=== PATIENT | male | born 1950 | race Two or more races ===

== ENCOUNTER 2017-07-06 20:38 | Emergency (ER) | payer MEDICARE ==
[~2017-07-06] VITALS: Ht 167.6 cm; Wt 81.2 kg
--- NOTE | 2017-07-06 21:00 | NUR ---
PT CAME IN WITH C/O "LT TEMPORAL SIDE NUMBNESS X10 DAYS; LOST MY VISION YESTERDAY AFTER TAKING TRAMADOL". SEEN BY MD FOR EVAL. VSS. SAFETY AND COMFORT MEASURES PROVIDED. WILL MONITOR.
[2017-07-06] MEDS ORDERED: MECLIZINE HCL 12.5 MG TABLET PO ONE (21:30)
[2017-07-06] MEDS ORDERED: IBUPROFEN 600 MG TABLET PO ONE ×2 (21:30→21:32)
--- NOTE | 2017-07-06 21:30 | NUR ---
PT MEDICATED ORDERED.
[2017-07-06] MEDS ORDERED: MECLIZINE HCL 25 MG TABLET ONE (21:32)
[2017-07-06 21:37] LABS: BASOPHILS % (AUTO) 0.6 % (0.0-2.0); EOSINOPHILS # (AUTO) 0.4 /CMM (0.0-0.7); EOSINOPHILS % (AUTO) 5.4 % (0.0-6.0); HEMATOCRIT 41 % (39-51); HEMOGLOBIN 14.1 g/dL (13.5-17.5); LYMPHOCYTES # (AUTO) 2.3 /CMM (0.8-4.8); MEAN CORPUSCULAR HEMOGLOBIN 31 PG (26.0-33.0); MEAN CORPUSCULAR HGB CONC 34 g/dl (31.0-36.0); MEAN CORPUSCULAR VOLUME 89 fL (80-96); MONOCYTES # (AUTO) 0.5 /CMM (0.1-1.30); MONOCYTES % (AUTO) 7.2 % (2.0-12.0); NEUTROPHILS # (AUTO) 4.2 /CMM (1.8-8.9); NEUTROPHILS % (AUTO) 55.8 % (43.0-81.0); PLATELET COUNT (AUTO) 240 /CMM (150-450); RDW COEFFICIENT OF VARIATION 12.3 (11.5-15.0); RED BLOOD CELL COUNT(AUTO) 4.63 MIL/uL (4.5-6.0); WHITE BLOOD COUNT (AUTO) 7.4 K/uL (4.3-11.0)
[2017-07-06 21:46] LABS: CALCIUM, SERUM 9.1 mg/dL (8.5-10.1); POTASSIUM 3.9 mmol/L (3.5-5.1)
--- NOTE | 2017-07-06 22:30 | NUR ---
Pt. ambulatory with a steady gait
--- NOTE | 2017-07-06 22:44 | NUR ---
Patient discharged to home in stable condition. Written and verbal after care instructions given. Patient verbalizes understanding of instruction.
[2017-07-06 22:45] VITALS: BP 145/81
== END 2017-07-06 22:46 | disposition home or self-care (01) ==
LOC: ER 20:40
DX: R51 Headache (principal); R42 Dizziness and giddiness; F17.200 Nicotine dependence, unspecified, uncomplicated
CPT/HCPCS: 36415; 70450-TC; 80048-TC; 85025-TC; A4606; J8597; Z7610